=== PATIENT | female | born 1980 | race Caucasian/White ===

== ENCOUNTER 2024-08-08 22:36 | Emergency (ER) | payer OTHER ==
[2024-08-08 22:38] VITALS: PULSE 99; O2SAT 99
== END 2024-08-09 | disposition left against medical advice (07) ==
LOC: ER 22:36
DX: Z00.00 Encounter for general adult medical examination without abnormal findings (principal); Z53.21 Procedure and treatment not carried out due to patient leaving prior to being seen by health care provider

== ENCOUNTER 2024-08-17 15:42 | Emergency (ER) | payer OTHER ==
[~2024-08-17] VITALS: Ht 167.6 cm; Wt 75.0 kg
[2024-08-17 16:02] VITALS: O2SAT 98
[2024-08-17] MEDS: METOCLOPRAMIDE HCL 10MG TABLET PO ONE (16:55)
[2024-08-17] MEDS: KETOROLAC 15MG/ML VIAL IM ONE (16:55)
[2024-08-17] MEDS ORDERED: NAPR-1176 MT (17:16)
[2024-08-17 17:31] VITALS: BP 120/73; PULSE 66; RESP 18; TEMP 36.78072; O2SAT 100
== END 2024-08-17 17:33 | disposition home or self-care (01) ==
LOC: ER 15:42
DX: S09.90XA Unspecified injury of head, initial encounter (principal); Z79.1 Long term (current) use of non-steroidal anti-inflammatories (NSAID); Z98.890 Other specified postprocedural states; X58.XXXA Exposure to other specified factors, initial encounter; Y93.89 Activity, other specified; Y92.89 Other specified places as the place of occurrence of the external cause; Y99.8 Other external cause status
CPT/HCPCS: 99283; 81025; 96372; J8597; J1885